=== PATIENT | male | born 1990 | race Caucasian/White ===

== ENCOUNTER 2016-11-26 22:40 | Emergency (ER) | payer OTHER ==
[2016-11-26 22:42] VITALS: BP 143/75; PULSE 74; RESP 16; TEMP 98.6; O2SAT 97
[2016-11-27] MEDS ORDERED: BACT800T5 PO ×3 (00:02→00:43)
[2016-11-27] MEDS ORDERED: CEPH-460 PO ×2 (00:02→00:43)
--- NOTE | 2016-11-27 00:06 | PD ---
HPI Chief Complaint: Injury Time Seen by Provider: 23:39 Travel History International Travel<30 days: No Contact w/Intl Traveler<30days: No Traveled to known affect area: No History of Present Illness HPI 26-year-old male complains of a one-day history of excessive swelling in his left knee with pain. He is concerned that there is an infection because he had chills earlier today. States he has seen 2 physicians before and they advised against draining the knee because of the high possibility of recurrence. He states he has a history of knee swelling but it has never been this bad PFSH Past Medical History Medical History: Denies Significant Hx Diminished Hearing: No Past Surgical History Surgical History: No Previous Surgery Social History Alcohol Use: Yes (EVERYDAY ) Tobacco Use: No Substance Use: No Allergies-Medications (Allergen,Severity, Reaction): Coded Allergies: No Known Allergies (Unverified , 11/26/16) Reported Meds & Prescriptions Reported Meds & Active Scripts Active Bactrim DS (Sulfamethoxazole-Trimethoprim) 800-160 Mg Tab 1 Tab PO BID Reported Bactrim DS (Sulfamethoxazole-Trimethoprim) 800-160 Mg Tab 1 Tab PO BID Review of Systems Except as stated in HPI: all other systems reviewed are Neg General / Constitutional: Positive: Chills Physical Exam Narrative GENERAL: Well-developed well-nourished in mild distress SKIN: Focused skin assessment warm/dry. Left anterior knee with mild erythema on very anterior portion of knee and warmth. HEAD: Atraumatic. Normocephalic. EYES: Pupils equal and round. No scleral icterus. No injection or drainage. ENT: No nasal bleeding or discharge. Mucous membranes pink and moist. NECK: Trachea midline. No JVD. MUSCULOSKELETAL: Left anterior portion of patella markedly edematous, tender to palpation, mild erythema without lymphangitic Spread. Full range of motion of knees bilaterally. No crepitus. NEUROLOGICAL: Awake and alert. No obvious cranial nerve deficits. Motor grossly within normal limits. Normal speech. PSYCHIATRIC: Appropriate mood and affect; insight and judgment normal. 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 States that his left knee has increased in size and is more painful than it has been before. States he has had these joint effusions for about 3 years and has seen multiple physicians who've recommended against arthrocentesis. Denies any provocation of pain or radiation of pain. Denies trauma. The pain is aching and constant. His vital signs are stable and has full range of motion of knee and can fully bear weight on his knee. There is a concern for a developing cellulitis and so will treat as such. Pt advised to monitor closely for changes and follow up with PCP or ortho. Diagnosis Primary Impression: Cellulitis of left knee Referrals: Orthopedist Primary Care Physician Patient Instructions: Cellulitis (ED), General Instructions, Knee Pain (ED) Departure Forms: Tests/Procedures, Work Release Enter return to work date: Nov 29, 2016 Special Instructions: Keep area clean and dry. Additional Instructions: Keep knee elevated to reduce swelling Use compresses May use over the counter ibuprofen for pain control per package instructions Complete all antibiotics as prescribed Follow up with a primary care physician and/or orthopedic to address knee further Med/Other Pt SpecificInfo: Prescription(s) given Scripts Cephalexin (Keflex) 500 Mg Capsule 500 MG PO QID for Infection for 5 Days, CAP 0 Refills Prov: Liana Moore 11/27/16 Sulfamethoxazole-Trimethoprim (Bactrim DS) 800-160 Mg Tab 1 TAB PO BID for Infection, #20 TAB 0 Refills Prov: Liana Moore 11/27/16 Disposition: 01 DISCHARGE HOME Condition: Stable Hoa Sellers Nov 27, 2016 00:06
[2016-11-27] MEDS ORDERED: KETOROLAC TROMETHAMINE 60 MG/2 ML (IM) VIAL IM ONE (00:15)
[2016-11-27] MEDS ORDERED: SULFAMETHOXAZOLE-TRIMETHOPRIM DS 800-160 MG TAB PO ONE (00:15)
[2016-11-27] MEDS ORDERED: CEPHALEXIN MONOHYDRATE 500 MG CAP PO ONE (00:15)
== END 2016-11-27 01:14 | disposition home or self-care (01) ==
LOC: NEPD 22:40
DX: L03.116 Cellulitis of left lower limb (principal); M25.562 Pain in left knee
CPT/HCPCS: 96372; 99284; J1885

== ENCOUNTER 2016-11-30 11:14 | Inpatient (IN) | payer OTHER ==
[~2016-11-30] VITALS: Ht 177.8 cm; Wt 75.4 kg
[~2016-11-30 11:14] MED LIST: BACT800T5 PO; CEPH-460 PO
[2016-11-30] MEDS ORDERED: VECURONIUM BROMIDE 20 MG VIAL IV ONE (12:00)
[2016-11-30] MEDS ORDERED: ROCURONIUM INJ 50 MG/5 ML SYRINGE IV PUSH ONE (12:00)
[2016-11-30] MEDS ORDERED: KETOROLAC TROMETHAMINE 30 MG/ML (IVP) VIAL IV PUSH ONE (12:00)
[2016-11-30] MEDS ORDERED: PROPOFOL 200 MG/20 ML AMP IV ONE (12:00)
[2016-11-30] MEDS ORDERED: LIDOCAINE HCL 1% PF 5 ML AMPULE OTHER ONE (12:00)
[2016-11-30] MEDS ORDERED: ONDANSETRON HCL 4 MG/2 ML VIAL IV PUSH ONE (12:00)
[2016-11-30] MEDS ORDERED: DEXAMETHASONE SOD PHOS 4 MG/ML VIAL IV ONE (12:00)
[2016-11-30] MEDS ORDERED: METOPROLOL TARTRATE 5 MG/5 ML VIAL IV PUSH ONE (12:00)
[2016-11-30] MEDS ORDERED: DOXY1CAP74 PO (12:23)
[2016-11-30] MEDS ORDERED: POVIDONE IODINE 5% (ANTISEPSIS KIT) 4 APPLICATIONS EACH NARE PRN (12:30)
[2016-11-30] MEDS ORDERED: CHLORHEXIDINE GLUCONATE 2 % 1 PACK (2 CLOTHS) TOPICAL PRN (12:30)
[2016-11-30] MEDS ORDERED: INSULIN HUMAN REGULAR 1,000 UNITS/10 ML VIAL SQ PRN (12:30)
[2016-11-30] MEDS ORDERED: LACTATED RINGER'S 1000 ML IV PRN (12:30)
[2016-11-30] MEDS ORDERED: SODIUM CHLORID 0.9% 500 ML IV PRN (12:30)
[2016-11-30] MEDS ORDERED: CHLORHEXIDINE GLUCONATE 4% SOLN 120 ML BTL TOPICAL SCH (12:30)
[2016-11-30] MEDS ORDERED: METOPROLOL TARTRATE 25 MG TAB PO PRN (12:30)
[2016-11-30] MEDS ORDERED: ceFAZolin 2 GM PREMIX 50 ML IV SCH (12:30)
[2016-11-30] MEDS ORDERED: POVIDONE IODINE 7.5% SCRUB 118 ML BOTTLE TOPICAL SCH (12:30)
[2016-11-30] MEDS ORDERED: GENTAMICIN SULFATE 80 MG/2 ML VIAL ONE (13:26)
[2016-11-30] MEDS ORDERED: MIDAZOLAM HCL 5 MG/5 ML VIAL ONE (14:17)
[2016-11-30] MEDS ORDERED: VANCOMYCIN HCL 1000 MG VIAL ONE (14:36)
[2016-11-30] MEDS: DEXT 5%-NACL 0.45% 1000 ML INJ 1,000 ML IV SCH (14:56)
[2016-11-30] MEDS ORDERED: MISCELLANEOUS NURSING INFORMATION XX PRN (15:00)
[2016-11-30] MEDS ORDERED: SODIUM CHLORIDE 0.9% FLUSH 5 ML FLUSH IVF PRN (15:00)
[2016-11-30] MEDS ORDERED: MISCELLANEOUS PHARMACY INFORMATION XX ONE (15:00)
[2016-11-30] MEDS ORDERED: diphenhydrAMINE HCL 25 MG CAP PO PRN (15:00)
[2016-11-30] MEDS ORDERED: MORPHINE SULFATE 4 MG/ML INJ IV PUSH PRN (15:00)
[2016-11-30] MEDS ORDERED: ONDANSETRON HCL 4 MG/2 ML VIAL IVP PRN (15:00)
[2016-11-30] MEDS ORDERED: MAGNESIUM HYDROXIDE SUSP 30 ML CUP PO PRN (15:00)
[2016-11-30] MEDS ORDERED: Post-op Orders (for Pharmacy) MISC XX ONE (15:00)
[2016-11-30] MEDS ORDERED: PERC5TAB12 PO (15:04)
[2016-11-30] MEDS ORDERED: BACT800T5 PO (15:05)
[2016-11-30] MEDS ORDERED: *diphenhydrAMINE HCL 50 MG/ML VIAL PERIprocedural Use ONLY ONE (15:07)
[2016-11-30] MEDS ORDERED: *morphine SULFATE 8 MG/ML PERIprocedure ONLY ONE ×2 (15:26→15:37)
[2016-11-30] MEDS ORDERED: DO NOT ADM ANY ANTICOAGULANT DRUGS PRN (16:00)
[2016-11-30] MEDS: oxyCODONE/ACETAMINOPHEN 5 MG/325 MG TAB PO PRN ×3 (17:14→22:12)
[2016-11-30 17:32] VITALS: BP 110/67; PULSE 62; RESP 20; TEMP 97.7; O2SAT 97
[2016-11-30 20:00] VITALS: BP 132/61; PULSE 51; RESP 20; TEMP 98.2; O2SAT 97
[2016-11-30] MEDS: DOCUSATE SODIUM 50 MG/SENNA 8.6 MG TAB PO SCH (20:52)
[2016-11-30] MEDS: SODIUM CHLORIDE 0.9% FLUSH 5 ML FLUSH IVF SCH (20:52)
[2016-12-01] VITALS (7 sets, daily range): BP systolic 111–127; BP diastolic 54–73; PULSE 52–61; RESP 18–20; TEMP 97.5–98.8; O2SAT 98–99
[2016-12-01] MEDS: DEXT 5%-NACL 0.45% 1000 ML INJ 1,000 ML IV SCH ×3 (00:56→20:56)
[2016-12-01] MEDS: VANCOMYCIN INJ 1,000 MG in SODIUM CHLOR 0.9% 250 ML INJ 250 ML IV SCH ×3 (04:58→14:10)
[2016-12-01] MEDS: oxyCODONE/ACETAMINOPHEN 5 MG/325 MG TAB PO PRN ×4 (05:16→22:27)
--- NOTE | 2016-12-01 06:52 | MP ---
cc: EMILIO HACKETT DATE OF SURGERY 11/30/2016 PREOPERATIVE DIAGNOSIS Left knee septic bursitis with abscess. POSTOPERATIVE DIAGNOSES Left knee septic bursitis with abscess. PROCEDURE Left knee excisional irrigation and debridement. SURGEON Dr. Emilio Hackett RN [facility] ANESTHESIA General ESTIMATED BLOOD LOSS 100 cc TOURNIQUET TIME 0 minutes COMPLICATIONS None JUSTIFICATION This patient is a 26-year male who developed the onset of severe pain, swelling and redness of his left knee, went to the [facility] emergency room and they diagnosed him with an infection. They gave him antibiotic therapy. His pain and swelling worsened. He developed symptoms of malaise and sepsis. He presented to the undersigned at the [facility] after referral from the emergency room. He had significant pain, swelling and redness of the prepatellar bursa of his left knee. I performed an aspiration which showed complete pus and purulent material. Almost immediately after the aspiration, the fluid filled back up again. The patient's pain was severe. He was counseled as to the risks, benefits and alternatives to the above-named proposed surgical procedure. He did wish to proceed with surgery. PROCEDURE IN DETAIL A written consent was obtained. The patient was identified by name, taken to the operating room table, placed supine on the operating room table. General anesthesia was administered as well as two grams of IV Ancef and one gram of IV vancomycin. The left lower extremity prepped and draped using isopropyl alcohol, Hibiclens solution and Chloraprep solution. After a time-out was performed, a longitudinal incision was made over the anterior aspect of the left knee. The prepatellar bursa was opened. A large copious amount of purulence was noted to come up from the abscess in this region. An excisional debridement was performed with a 10 blade scalpel to include skin, subcutaneous tissue and bursal tissue down to the level of the tendon and knee capsule. The knee was then thoroughly irrigated with sterile saline pulse lavage antibiotic impregnated solution. Bovie cautery was used for hemostasis. The incision was then closed with #2-0 nylon suture. Sterile dressing applied. The patient tolerated the procedure well with no intraoperative complications noted. MD HERON Edmond/CHIARA Blount: 11/30/2016/2:52 PM /6:42 AM
--- NOTE | 2016-12-01 07:54 | PD.ORT.PN ---
Subjective Post Op Day #: 1 Subjective Remarks pain improving. Objective Vitals Vital Signs Date Time Temp Pulse Resp B/P (MAP) Pulse Ox O2 Delivery O2 Flow Rate FiO2 12/01/16 04:00 97.7 58 20 111/54 (73) 98 12/01/16 00:00 97.5 60 20 115/57 (76) 98 11/30/16 20:00 98.2 51 20 132/61 (84) 97 11/30/16 17:32 97.7 62 20 110/67 (81) 97 11/30/16 16:15 52 12 105/50 (68) 96 Room Air 11/30/16 16:00 54 12 112/53 (72) 96 Room Air 11/30/16 15:45 63 16 116/48 (70) 96 Room Air 11/30/16 15:30 53 12 112/53 (72) 96 Room Air 11/30/16 15:15 74 12 143/65 (91) 100 Room Air 11/30/16 15:08 98.1 119 22 118/56 (76) 99 Nasal Cannula 2 11/30/16 12:26 98.1 68 16 137/75 (95) 99 I/O 11/30/16 11/30/16 11/30/16 12/01/16 12/01/16 12/01/16 07:00 15:00 23:00 07:00 15:00 23:00 Intake Total 550 ml Output Total 50 ml Balance 500 ml Intake IV Total 50 ml Other 500 ml Output Estimated Blood Loss 50 ml # Voids 2 Objective Remarks in bed, nad dressing c/d/i neg homans nvi Assessment & Plan Ortho Post Op Day #: 1 Problem List: Assessment and Plan s/p L knee I&D septic bursitis protected wbat daily dressing changes iv vanco awaiting cultures d/c planning home [place] Parr Dec 01, 2016 07:54
[2016-12-01] MEDS: SODIUM CHLORIDE 0.9% FLUSH 5 ML FLUSH IVF SCH ×2 (09:00→21:00)
[2016-12-01] MEDS: DOCUSATE SODIUM 50 MG/SENNA 8.6 MG TAB PO SCH ×2 (09:24→21:00)
[2016-12-01] MEDS: MULTIVITAMINS/MINERALS THERAPEUTIC TAB PO SCH (09:24)
[2016-12-02] VITALS: BP 124/76; PULSE 57; RESP 18; TEMP 98; O2SAT 98
[2016-12-02] MEDS: VANCOMYCIN INJ 1,000 MG in SODIUM CHLOR 0.9% 250 ML INJ 250 ML IV SCH ×2 (02:18→13:24)
[2016-12-02 08:17] VITALS: BP 119/57; PULSE 50; RESP 20; TEMP 97.7; O2SAT 97
[2016-12-02] MEDS: SODIUM CHLORIDE 0.9% FLUSH 5 ML FLUSH IVF SCH (09:00)
[2016-12-02] MEDS: DOCUSATE SODIUM 50 MG/SENNA 8.6 MG TAB PO SCH (09:00)
[2016-12-02] MEDS: MULTIVITAMINS/MINERALS THERAPEUTIC TAB PO SCH (09:32)
[2016-12-02] MEDS: oxyCODONE/ACETAMINOPHEN 5 MG/325 MG TAB PO PRN ×2 (09:41→18:10)
[2016-12-02 12:26] VITALS: BP 101/62; PULSE 50; RESP 20; TEMP 97.4; O2SAT 97
--- NOTE | 2016-12-02 13:06 | PD.ORT.PN ---
Subjective Post Op Day #: 2 Subjective Remarks pain improving. doing well. Objective Vitals Vital Signs Date Time Temp Pulse Resp B/P (MAP) Pulse Ox O2 Delivery O2 Flow Rate FiO2 12/02/16 12:26 97.4 50 20 101/62 (75) 97 12/02/16 08:17 97.7 50 20 119/57 (77) 97 12/02/16 00:00 98.0 57 18 124/76 (92) 98 12/01/16 20:00 98.8 61 18 121/73 (89) 98 12/01/16 19:38 21 12/01/16 16:00 98.1 53 20 125/61 (82) 99 I/O 12/01/16 12/01/16 12/01/16 12/02/16 12/02/16 12/02/16 07:00 15:00 23:00 07:00 15:00 23:00 Intake Total 250 ml Balance 250 ml Intake IV Total 250 ml # Voids 3 # Bowel Movements 1 Objective Remarks in bed, nad incision no erythema, no gross drainage neg homans nvi Assessment & Plan Ortho Post Op Day #: 2 Problem List: Assessment and Plan s/p L knee I&D septic bursitis protected wbat daily dressing changes iv vanco gram pos cocci - awaiting sensitivity d/c planning home when sensitivity complete and abx regimen in place f/up dr. tim 2 weeks Landry Parr Dec 02, 2016 13:06
--- NOTE | 2016-12-02 13:08 | HHI.DCPOC ---
Discharge Care Plan Your Health Problems Are: Skin Breakdown Goals to Promote Your Health * To prevent worsening of your condition and complications * To maintain your health at the optimal level Directions to Meet Your Goals Take your medications as prescribed Follow your dietary instruction Follow activity as directed Keep your appointments as scheduled Take your immunizations and boosters as scheduled If your symptoms worsen call your PCP, if no PCP go to Urgent Care Center or Emergency Room Smoking is Dangerous to Your Health. Avoid second hand smoke Call the 24-hour hour crisis hotline for domestic abuse at [facility] Dec 02, 2016 13:08
[2016-12-02 16:00] VITALS: BP 126/61; PULSE 54; RESP 20; TEMP 97.5; O2SAT 99
[2016-12-02] MEDS: DEXT 5%-NACL 0.45% 1000 ML INJ 1,000 ML IV SCH (16:56)
== END 2016-12-02 18:20 | disposition home or self-care (01) | DRG 488 ==
LOC: HSDI 11:14 → INTOOBSV 11:14 → OBSVTOIN 16:17 → N05A 17:07
PROVIDERS: ADMIT Orthopaedic Surgery Sports Medicine; ATTEND Orthopaedic Surgery Sports Medicine
PROC: 0SBD0ZZ Excision of Left Knee Joint, Open Approach (ICD-10-PCS; principal; 2016-11-30 14:20)
DX: M71.062 Abscess of bursa, left knee (principal); L03.116 Cellulitis of left lower limb; M25.562 Pain in left knee
CPT/HCPCS: 86403; 86850; 86900; 86901; 87015; 87070; 87077; 87102; 87116; 87186; 87205; 87206; 94150; 96372; E0113; J0690; J1100; J1200; J1580; J1885; J2250; J2270; J2405; J3010; J3370; J7050; J7120